=== PATIENT | female | born 1960 | race Hispanic/Latino ===

== ENCOUNTER → 2018-02-13 | Day surgery (SDC) | payer OTHER, MEDICARE ==
[2018-02-12 12:13] LABS: BASOPHILS # (AUTO) 0.1 (0.0-0.1); BASOPHILS % 1.2 % (0.0-1.0); EOSINOPHILS # (AUTO) 0.1 (0.0-0.4); EOSINOPHILS % 1.2 % (0.0-6.0); HEMATOCRIT 31.6 % (34.2-44.1); HEMOGLOBIN 9.8 g/dL (12.0-16.0); LYMPHOCYTES # (AUTO) 2.9 (1.0-3.2); LYMPHOCYTES % 34.7 % (18.0-39.1); MEAN CORPUSCULAR HEMOGLOBIN 30.3 pg (28-32); MEAN CORPUSCULAR VOLUME 97.8 fL (81-99); MONOCYTES # (AUTO) 0.5 (0.2-0.8); MONOCYTES % 5.9 % (4.4-11.3); NEUTROPHILS # (AUTO) 4.7 (2.1-6.9); NEUTROPHILS % 56.6 % (38.7-80.0); PLATELET COUNT 289 x10e3/uL (140-360); RED BLOOD COUNT 3.23 x10e6/uL (3.6-5.1); RED CELL DISTRIBUTION WIDTH 12.1 % (11.7-14.4)
[2018-02-12 12:32] LABS: ANION GAP 14.8 mmol/L (8-16); CALCIUM 9.7 mg/dL (8.4-10.2); CREATININE, SERUM 1.17 mg/dL (0.57-1.11); POTASSIUM 4.8 mmol/L (3.5-5.1)
--- NOTE | 2018-02-12 13:17 | Diagnostic Imaging Report ---
EXAMINATION: CHEST 2 VIEWS INDICATION: Preop foot surgery COMPARISON: None FINDINGS: PA and lateral views TUBES and LINES: None. LUNGS: Lungs are well inflated. There is no evidence of pneumonia or pulmonary edema. PLEURA: No pleural effusion or pneumothorax. HEART AND MEDIASTINUM: The cardiomediastinal silhouette is unremarkable.. BONES AND SOFT TISSUES: No focal osseous lesions. Soft tissues are unremarkable. UPPER ABDOMEN: No free air under the diaphragm. IMPRESSION: No acute cardiopulmonary process Signed by: Dr. Sal Ferraro MD on 02/12/2018 1:14 PM
[~2018-02-13] MED LIST: ACETAMINOPHEN 1000 MG/100 ML IV ONE; BACITRACIN 50,000 UNIT VIAL ONE; BUPIVACAINE HCL 0.5% INJ 30 ML VIAL INJ ONE; CEFAZOLIN SOD 1 GM VIAL ONE; CRESTOR10 MG PO; DEXAMETHASONE SOD PHOS INJ 4 MG/ML VIAL ONE; EPHEDRINE SULFATE INJ 50 MG/10 ML SYR ONE; FENTANYL CITRATE/PF 100MCG/2 ML INJ ONE; JANUVIA100 MG PO; KETOROLAC TROMETHAMINE 30 MG/ML VIAL ONE; LIDOCAINE HCL 2% LOCAL INJ 5 ML SDV VIAL INJ ONE; LOSARTAN-HCTZ1 EACH PO; MIDAZOLAM HCL 2 MG/2 ML VIAL ONE; MUPIROCIN 2% OINT 22 GM TUBE ONE; NOVOLOG100 UNITS1 SC; ONDANSETRON HCL INJ 2 MG/ML VIAL ONE; PROPOFOL IV EMULSION 10 MG/ML 20 ML VIAL ONE; SEVOFLURANE INHAL SOLN 250 ML PEN BTL ONE; TRESIBA SQ; [UNRECOGNIZED DRUG - OTHER] SC
[2018-02-13 09:00] VITALS: BP 157/67
--- NOTE | 2018-02-13 09:00 | Operative Report ---
DATE OF PROCEDURE: February 13, 2018 PREOPERATIVE DIAGNOSIS: Left ankle fracture. POSTOPERATIVE DIAGNOSIS: Left ankle fracture. PLANNED PROCEDURE: Left ankle open reduction internal fixation with repair of syndesmosis. SURGEON: Jesus Akers DPM SKIRT TRIMMER: Dr. Ly DPM ANESTHESIA: General with a postoperative block consisting of 20 mL of 0.5% Marcaine plain mixed with 1 mL of dexamethasone phosphate. HEMOSTASIS: Pneumatic thigh tourniquet set at 350 mmHg for a total time of approximately 40 minutes. MATERIALS: One 4-hole distal fibular [place] plate; 3.5 mm locking screws 14 times 3, one 16-mm screw; 3.5 nonlocking screws 12 mm times 2, 14 mm times 2 and 1 syndesmotic 44 mm 3.5 screw; 3-0 Vicryl, 4-0 Prolene. ESTIMATED BLOOD LOSS: Less than 10 mL. PATHOLOGY: None. PROCEDURE NOTE: The patient was seen in the preoperative waiting room where the correct procedure and site were identified. The patient was brought into the operating room and placed on the operating table in the supine position. General anesthesia was initiated at this time. A well-padded pneumatic tourniquet was placed about the patient's left thigh. The left foot and ankle were then scrubbed, prepped, and draped in the usual aseptic manner. The left foot, ankle, and leg were exsanguinated with an Esmarch bandage, and the pneumatic thigh tourniquet was inflated to 350 mmHg for a total time of approximately 40 minutes. Attention was directed to the lateral aspect of the patient's left ankle where a 6-cm linear incision was made directly over the lateral aspect of the fibula. The incision was carried through subcutaneous tissues them from deeper underlying structures. All vital neurovascular structures were identified and retracted medially and laterally, and all bleeders were cauterized or ligated as deemed necessary. At this time, the incision was carried down to the level of bone reflecting all soft tissues ensuring to leave the periosteum intact. The fibular fracture was easily identified. It was noted to be spiral oblique at the level of the ankle joint. The ankle fracture was cleansed and debrided of all hematoma formation and reduced utilizing techniques of manipulation and distraction and temporary clasped with a bone reduction forceps. The bone quality appeared to be osteoporotic and soft, the decision was made not to do a lag screw and to apply just a lateral plate. A 4-hole [place] fibular plate was temporarily fixated and confirmed to be in the correct location via intraoperative fluoroscopy. Distal locking screws were placed, followed by proximal nonlocking screws. The reduction clamp was removed and again intraoperative fluoroscopy reveals good anatomic alignment. The patient had failed an intraoperative hook test, so the syndesmotic ligament was repaired utilizing a one 3.5 non-cannulated syndesmotic screw while using pelvic reduction clamp to keep the syndesmosis in alignment. It should be noted on intraoperative fluoroscopy a fracture of [place] was noted on the anterolateral aspect of the tibia, is noted to be in good alignment and was not fixated at this time. The wound was then flushed with copious amounts of sterile saline. Capsule and deep tissue were reapproximated with 3-0 Vicryl, subcutaneous tissue with 3-0 Vicryl, and the skin was closed using simple interrupted sutures with 4-0 Prolene. The medial stab incision for the pelvic reduction forceps was closed with 1 suture of 3-0 Prolene. The incision sites were then dressed with Adaptic, 4 x 4's, Kerlix, 4-inch Webril posterior splint, 4-inch Ronal wrap, and 6-inch Ronal wrap. The patient tolerated the procedure and anesthesia well. The patient was transferred to the postoperative recovery unit with vital signs stable and vascular status intact. The patient was monitored there for a short period of time before being sent home with the following written and oral instructions: 1. Keep the dressing clean, dry, and intact. 2. The patient is to remain 100% nonweightbearing to the left lower extremity, to avoid any ambulation until being seen in the office. 3. The patient was given the office number and instructed to contact us if any problems should arise. Job#: [id number]
== END | disposition home or self-care (01) ==
LOC: OR 05:03 → EDBD 06:30
PROVIDERS: ATTEND Podiatrist Foot & Ankle Surgery
DX: S82.442A Displaced spiral fracture of shaft of left fibula, initial encounter for closed fracture (principal); S82.892A Other fracture of left lower leg, initial encounter for closed fracture; E11.9 Type 2 diabetes mellitus without complications; I10 Essential (primary) hypertension; Z01.810 Encounter for preprocedural cardiovascular examination; Z01.812 Encounter for preprocedural laboratory examination; Z01.811 Encounter for preprocedural respiratory examination
CPT/HCPCS: 27792; 36415 ×2; 71046; 76000; 80048; 82948; 85025; 93005; C1713; J0690; J1100; J1885; J2001; J2250; J2405